=== PATIENT | female | born 1955 | race African-American/Black ===

== ENCOUNTER 2016-05-17 01:47 | Inpatient (IN) | payer OTHER ==
[~2016-05-17] VITALS: Ht 154.9 cm; Wt 81.6 kg
[~2016-05-17 01:47] MED LIST: ASPIRIN EC81 M1 PO; ATORVASTATIN CA20 M1 PO; COZAAR50 M1 PO; DICYCLOMINE HCL10 M1 PO; FISH OIL 1,001000 MG PO; GLUCOPHAGE1000 M1 PO; GLYBURIDE5 M1 PO; OMEPRAZOLE40 M1 PO
[2016-05-17] MEDS ORDERED: VICODIN 5-3001 EACH PO (09:35)
--- NOTE | 2016-05-17 10:44 | Admission Core Measures ---
Admission Meds I reviewed the following Meds: Current Medications Sig/Samir Start time Last Medication Dose Stop Time Status Admin Cefazolin Sodium 2,000 MG ONCE 05/17 0000 NR (Kefzol-Ancef Inj) 05/17 8429 Acute Coronary Syndrome Inclusion Criteria ACS Diagnosis No Inpatient Core Measures LDL Reminder: If No, please order W/I first 24hr of stay Congestive Heart Failure Inclusion Criteria CHF Diagnosis No Cerebrovascular accident Inclusion Criteria CVA/TIA Diagnosis No Inpatient Core Measures Bedside Swallow Eval Reminder: If BSE failed, place ST order Antithrombotic Reminder: Order Antithrombotic Medication by end of day 2 Antithrombotic Reminder: Document Reason Antithrombotic Not ordered by end of day 2 AFIB/Flutter Reminder: If Present, add to problem list AFIB/Flutter Reminder: Order Anticoag Medication for pts with AFIB/Flutter Atherosclerosis Reminder: If Present, add to problem list LDL Reminder: If No, please order W/I first 24hr of stay PT Order Reminder: If No, please order Venous thromboembolism Inpatient Core Measures VTE Risk Factors: Age > 40, Surgery VTE Prophylaxis Ordered Inpt Mech & Pharm No Mech VTE prophylaxis d/t No contraindications No VTE Pharm Prophylaxis d/t No contraindications Inclusion Criteria - Per Current guidelines, there needs to be overlap - treatment for the first 5 days of Warfarin therapy. - Parenteral Anticoagulation (IV or SC) needs to be - given along with Warfarin therapy. VTE Diagnosis No VTE Type NONE VTE Confirmed by (Test) NONE Problem List As ranked by this Provider includes Assessment & Plan 1. Status post total hip replacement, right HOME MEDS Home Med List Aspirin (Ecotrin*) 81 MG TABLET. 1 TAB PO DAILY HEART/BLOOD (Reported) Atorvastatin Calcium 20 MG TABLET 1 TAB PO DAILY CHOLESTEROL (Reported) Dicyclomine HCl 10 MG CAPSULE 1 CAP PO PRN UNKNOWN (Reported) Glyburide 5 MG TABLET 1 TAB PO BID DM (Reported) Hydrocodone/Acetaminophen (Vicodin 5-300 MG Tablet) 5 MG-300 MG TABLET 1 TAB PO 2XD PRN PAIN (Reported) Losartan Potassium (Cozaar) 50 MG TABLET 1 TAB PO DAILY BP (Reported) Metformin HCl (Glucophage) 1,000 MG TABLET 1 TAB PO BID DM (Reported) Thorndike-3/Dha/Epa/Fish Oil (Fish Oil 1,000 MG Softgel) 1,000 MG (120 MG-180 MG) CAPSULE 1 CAP PO BID SUPPLEMENT (Reported) Omeprazole 40 MG CAPSULE. 1 CAP PO BID GERD (Reported)
--- NOTE | 2016-05-17 10:46 | Patient Discharge Instructions ---
Discharge Instructions General Discharge Information You were seen/treated for: Right hip pain You had these procedures: 05/17/2016 right total hip arthroplasty Watch for these problems: Redness, swelling, fever, signs of infection. Uncontrolled pain, Excessive bleeding. Decreased range of motion or unable to bear weight. Chest pain, shortness of breath. Call Surgeon to remove: Stitches Do not soak the wound: Yes No bath, but you may shower: Yes Other wound care: Daily dry dressing changes starting postop day 2 Diet Continue normal diet: Yes Activity Activity Self Limited: Yes Activity Limited to: Weight bear as tolerated Additional ACTIVITY Info: Daily physical therapy Acute Coronary Syndrome Inclusion Criteria At DC or during hospital stay patient has or had the following: ACS DIAGNOSIS No Discharge Core Measures Meds if any: Prescribed or Continued at Discharge Meds if any: NOT Prescribed or Continued at Discharge Congestive Heart Failure Inclusion Criteria At DC or during hospital stay patient has or had the following: CHF DIAGNOSIS No Discharge Core Measures Meds if any: Prescribed or Continued at Discharge Meds if any: NOT Prescribed or Continued at Discharge Cerebrovascular accident Inclusion Criteria At DC or during hospital stay patient has or had the following: CVA/TIA Diagnosis No Discharge Core Measures Meds if any: Prescribed or Continued at Discharge Meds if any: NOT Prescribed or Continued at Discharge Venous thromboembolism Inclusion Criteria VTE Diagnosis No VTE Type NONE VTE Confirmed by (Test) NONE Discharge Core Measures - Per Current guidelines, there needs to be overlap - treatment for the first 5 days of Warfarin therapy. - If discharged on Warfarin prior to 5 days of - overlap therapy, the patient will need to be - assessed for post discharge needs including - *Post discharge parental anticoagulation - *Warfarin and/or parental anticoagulation education - *Follow up date to check INR post discharge At least 5 days overlap therapy as Inpatient No Meds if any: Prescribed or Continued at Discharge Note: Overlap Therapy is Warfarin and Anticoagulant Meds if any: NOT Prescribed or Continued at Discharge
[2016-05-17] MEDS ORDERED: MORPHINE SULFAT15 M3 PO (10:53)
[2016-05-17] MEDS ORDERED: MIRALAX17 G1 PO (10:53)
[2016-05-17] MEDS ORDERED: DILAUDID2 M1 PO (10:53)
[2016-05-17] MEDS ORDERED: ASPIRIN325 M2 PO (10:53)
[2016-05-17] MEDS ORDERED: COLACE100 M1 PO (10:53)
--- NOTE | 2016-05-17 10:55 | Surg Short-stay <48hrs Dis Sum ---
Visit Information Visit Dates Admission Date: 05/17/16 Discharge Date: 05/18/16 Surgical Short Stay DC Summary Admission Diagnosis: Right hip pain Final Diagnosis: Same Procedure(s): 05/17/2016 right total hip arthroplasty Summary/Significant Findings: Patient admitted to floor following procedure below. Patient ambulated with PT upon arrival to the floor. Patient continued to progress well. Upon discharge patient is afebrile, tolerating diet, pain controlled, ambulating well with rolling walker and PT. Condition at Discharge: Good Discharge Disposition: home health services Discharge instructions provided to patient/family: Yes Post discharge follow-up plan: Call office to schedule/confirm appointment
--- NOTE | 2016-05-17 13:36 | RADIOLOGY REPORT ---
EXAMINATION: XR HIP, RIGHT CLINICAL INFORMATION: Status post right THR. COMPARISON: None. TECHNIQUE: Two views of the right hip. FINDINGS: Total hip prosthesis is present, which appears to be in good position without evidence of loosening or associated fracture. IMPRESSION: Normal postoperative appearance.
--- NOTE | 2016-05-17 15:05 | PN- Orthopedic ---
Subjective Subjective: Post op check Awake, alert post op Denies nausea, pain well controlled Ambulated with PT without difficulty Objective Vital Signs and I&Os temp 97.8 rr 16 sat 96% 2lnc hr 68 regular bp 140/80 Physical Exam: urine output: voiding spont but not measured General; alert and oriented times three Chest: clear anteriorly bilaterally, RRR Abd: soft, good bs Ext: warm, no edema, positive sensate, no calf tenderness, good strength 5/5 BLE Wound: dressed, dry, ice pack in place Assessment/Plan Assessment/Plan 60 yo female s/p R THR pain management asa 325mg po bid for dvt ppx wbat ada diet ss insulin Core Measures/Miscellaneous Venous Thromboembolism VTE Risk Factors: Age > 40 VTE Contraindications: No Contraindications VTE Prophylaxis Ordered Inpt: Mech & Pharm VTE Diagnosis: No VTE Type: NONE VTE Confirmed by (Test): NONE Beta Truman Is Beta Truman a Home Med? No Antibiotics Is Patient on Antibiotics? Yes If Yes: prophylaxis (24 hrs post op)
--- NOTE | 2016-05-17 16:36 | Operative Report ---
Operative/Inv Procedure Report Surgery Date: 05/17/16 Name of Procedure: Right total hip replacement Pre-Operative Diagnosis: Primary right hip DJD Post-Operative Diagnosis: Same Estimated Blood Loss: 300 Surgeon/Taxi Driver Supervisor: STEVE PEARL,NANCY Staton Anesthesia: block Operative/Procedure Note Note: Description of Procedure: The patient was taken to the operating room and positively identified. After induction of spinal anesthesia and administration of appropriate pre-operative antibiotics, the patient was positioned supine on the operating room table and all bony prominences were well padded. After performing a surgical timeout, the right lower extremity was prepped and draped in the usual sterile fashion. A direct anterior approach was made to the right hip. The incision was carried sharply through superficial soft tissues to the level of the fascia. Meticulous hemostasis was maintained with Bovie electocautery. The fascia over the tensor fascia aurora muscle was opened sharply and the interval between the TFL and the sartorius was entered bluntly taking care to stay lateral to the lateral femoral cutaneous nerve. Retractors were placed around the femoral neck and the pericapsular fat was identified. The ascending branches of the lateral femoral circumflex vessels were identified and carefully coagulated. The pericapsular fat and anterior capsule were then resected. A napkin ring osteotomy was performed and the femoral head was removed without difficulty. Attention was then turned to the acetabulum. After appropriate placement of retractors, the acetabulum was exposed. Soft tissue was cleaned from the acetabular margin and notch. Overhanging osteophytes were removed and the teardrop was exposed. The acetabulum was then sequentially reamed to accept a 54 mm Don Tritanium hemispherical solid back shell. This was impacted into place in the appropriate position and fitted with a 36 mm Trident X3 zero degree polyethylene insert. Attention was then turned to the femur. After performing the appropriate ligament releases, the proximal femur was exposed. It was then sequentially broached to accept a size 2 Midland accolade 2 stem. This was trialed for leg length and stability. The trial component was removed and the final component was impacted into place. The trunnion was carefully cleaned and fit with a 36 mm,+ 5 Biolox delta ceramic femoral head. The hip was reduced and put through a full range of motion and found to be stable. The articular space was then irrigated with sterile saline. The periarticular soft tissues were infilitrated with Marcaine. The fascial layer was closed with interrupted #1 vicryl suture and the skin was re-approximated with interrupted 2 -0 vicryl. The skin was closed with a running 3-0 V-Lock suture. Steri-strips and a sterile dressing were applied. The patient was awakened and taken to the recovery room in satisfactory condition.
[2016-05-17 18:10] VITALS: BP 140/60
--- NOTE | 2016-05-17 19:06 | NUR ---
1809 PATIENT ARRIVED TO FLOOR BED LOW AND LOCKED. CALL LIGHT WITHIN REACH. DRESSING CLEAN, DRY, AND INTACT ALERT AND ORIENTED X 3. VITAL SIGNS STABLE. ON ROOM AIR WILL CONTINUE TO MONITOR
[2016-05-17 19:54] VITALS: BP 140/80
[2016-05-17 22:14] VITALS: BP 140/80
[2016-05-18 00:10] VITALS: BP 140/80
[2016-05-18 04:41] VITALS: BP 130/70
[2016-05-18 08:00] VITALS: BP 142/60
[2016-05-18 08:52] LABS: ABSOLUTE BASOPHIL COUNT 0 /CUMM (0.0-0.2); ABSOLUTE EOSINOPHIL COUNT 0 /CUMM (0.0-0.7); ABSOLUTE LYMPH COUNT 2.1 /CUMM (1.2-3.4); ABSOLUTE MONOCYTE COUNT 1.1 /CUMM (0.10-0.60); BASOPHIL % 0.5 % (0.0-2.0); EOSINOPHIL % 0.1 % (0-5); GRANULOCYTE % 68.2 % (42.2-75.2); HEMATOCRIT 30.1 % (37-47); MEAN CORPUSCULAR HGB 26.5 PG (27.0-31.0); MEAN CORPUSCULAR HGB CONC 32.9 G/DL (33.0-37.0); MEAN CORPUSCULAR VOLUME 80.5 FL (81.0-99.0); MEAN PLATELET VOLUME 7.8 FL (7.4-10.4); PLATELET COUNT 404 /CUMM (130-400); RBC DISTRIBUTION WIDTH 18.2 % (11.5-14.5); RED BLOOD CELL CT 3.74 /CUMM (4.20-5.40); WHITE BLOOD CELL COUNT 10.3 /CUMM (4.8-10.8)
--- NOTE | 2016-05-18 09:15 | PN- Orthopedic ---
Subjective Subjective: Patient reporting no acute overnight events. Feels pain in operative hip, 09/15. Denies chest pain, shortness of breath, and difficulty breathing. Denies nausea and vomitting. Is anticipating discharge to home today pending pt clearance and pain managment on po. Objective Vital Signs and I&Os Vital Signs Date Time Temp Pulse Resp B/P Pulse O2 O2 Flow FiO2 Ox Delivery Rate 05/18 08 98.1 101 18 142/60 98 Room Air 05/18 0441 98.7 97 20 130/70 97 Room Air 05/18 0010 98.6 85 20 140/80 92 Room Air 05/17 2214 98.0 89 20 140/80 90 Room Air 05/17 1954 97.7 97 20 140/80 94 Room Air 05/17 1810 98.6 80 20 140/60 93 Room Air Intake & Output 05/18 1600 05/18 0800 05/18 0000 05/17 1600 05/17 0800 05/17 0000 Intake Total 700 Output Total 600 300 Balance 100 -300 Intake, IV 600 Intake, Oral 100 Output, Urine 600 300 Patient 180 lb Weight Physical Exam: General: Alert and oriented x3, no acute distress Cardiac: RRR, s1s2 Pulmonary: Bilateral lung sounds clear to auscultation Abdomen: Non-tender, non-distended Extremiteis: Moves all extremities, distal sensation intact. Motor 5/5 in plantar and dorsi flexion. Skin warm and well perfused. DP pulses palpable bilaterally. Bilateral calves soft and non-tender. Surgical site: Right groin. Dressing dry and intact, thigh compartment soft. Assessment/Plan Assessment/Plan This is a 60 year old female POD 1, s/p right thr -d/c insulin -Restart oral antihyperglycemics -d/c iv morphine -start 15 ms contin bid -Continue prn dilaudid -Continue bowel regimen with colace and miralax -d/c iv fluids -diet as tolerated -OOB with pt -d/c to home today if pass pt and pain controlled Core Measures/Miscellaneous Venous Thromboembolism VTE Risk Factors: Age > 40 VTE Contraindications: No Contraindications VTE Prophylaxis Ordered Inpt: Mech & Pharm VTE Diagnosis: No VTE Type: NONE VTE Confirmed by (Test): NONE Beta Truman Is Beta Truman a Home Med? No Antibiotics Is Patient on Antibiotics? Yes If Yes: prophylaxis (24 hrs post op)
[2016-05-18 09:55] VITALS: BP 134/70
== END 2016-05-18 13:11 | disposition home health service (06) | DRG 470 ==
LOC: SDA 01:47 → 2NA 18:05
PROVIDERS: Physician Assistant Surgical; ADMIT Orthopaedic Surgery
PROC: 0SR904A Replacement of Right Hip Joint with Ceramic on Polyethylene Synthetic Substitute, Uncemented, Open Approach (ICD-10-PCS; principal; 2016-05-17)
DX: M16.11 Unilateral primary osteoarthritis, right hip (principal); I10 Essential (primary) hypertension; E11.9 Type 2 diabetes mellitus without complications; Z79.84 Long term (current) use of oral hypoglycemic drugs; E78.5 Hyperlipidemia, unspecified; K21.9 Gastro-esophageal reflux disease without esophagitis; Z87.891 Personal history of nicotine dependence
CPT/HCPCS: 2NAP; 73502-RT; 82436; 88304; 93005; 93010; 97001-GP; 97116-GO; 97161-GP; 97530-GO; J0690; J0735; J1170; J2270

== ENCOUNTER 2017-08-16 09:10 | Emergency (ER) | payer OTHER ==
[~2017-08-16] VITALS: Ht 154.9 cm; Wt 83.5 kg
[~2017-08-16 09:10] MED LIST changes: +ASPIRIN325 M2 PO; -ATORVASTATIN CA20 M1 PO; +COLACE100 M1 PO; +DILAUDID2 M1 PO; +LIPITOR80 M1 PO; +MIRALAX17 G1 PO; +MORPHINE SULFAT15 M3 PO; +VICODIN 5-3001 EACH PO
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
[2017-08-16] MEDS ORDERED: MOBIC15 M1 PO (09:39)
[2017-08-16] MEDS ORDERED: CYCLOBENZAPRINE10 M1 PO (09:39)
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
[2017-08-16 10:28] VITALS: BP 138/87
== END 2017-08-16 10:29 ==
LOC: ERH 09:10
DX: S16.1XXA Strain of muscle, fascia and tendon at neck level, initial encounter (principal); S09.90XA Unspecified injury of head, initial encounter; V43.91XA Unspecified car occupant injured in collision with sport utility vehicle in traffic accident, initial encounter; Y92.9 Unspecified place or not applicable
CPT/HCPCS: 72050